=== PATIENT | male | born 1950 | race Caucasian/White ===

== ENCOUNTER 2021-12-05 15:34 | Emergency (ER) | payer BC, SELFPAY ==
[2021-12-05 15:36] VITALS: BP 173/113; PULSE 96; RESP 16; TEMP 36.6; O2SAT 96; BMI 30.7
--- NOTE | 2021-12-05 17:01 | CT_ITS ---
STUDY: CT ABDOMEN AND PELVIS WITH CONTRAST REASON FOR EXAM: Male, 71 years old. pain, weight loss RADIATION DOSAGE (If Supplied By Facility): CTDIvol = ( 15.12 ) mGy, DLP = ( 912.83 ) mGycm TECHNIQUE: Transaxial images were obtained from the dome of the diaphragm to the symphysis pubis without oral contrast. IV 100mL Isovue-370 was administered. Sagittal and coronal images were reconstructed. Individualized dose optimization techniques were used for this CT. COMPARISON: None. FINDINGS: Some left lower lobe discoid atelectasis. The visualized portions of the heart are within normal limits. Normal liver. Normal gallbladder and extrahepatic biliary system. Normal spleen. There is diffuse atrophy of the pancreas. Normal bilateral adrenal glands. Normal right kidney. Normal left kidney. Normal visualized stomach. Asymmetric wall thickening and stranding of the surrounding fat of the medial wall of the second portion the duodenum worrisome for duodenitis or mass. Correlation with endoscopy would be useful. Normal colon. There is non-visualization of the appendix. There is diffuse atherosclerotic calcification of the abdominal aorta, without a demonstrated aneurysm. Normal inferior vena cava. Normal retroperitoneum. Normal urinary bladder. Normal abdominal wall. Mild dextroscoliosis of the lumbar spine with degenerative disc disease. CT/Abdomen/Pelvis W IV Cont ONLY IMPRESSION: Asymmetric wall thickening of the second portion the duodenum worrisome for duodenitis or mass. Correlation with endoscopy is recommended. Electronically Signed: Bill Pierson MD at 18:11 EDT ,
--- NOTE | 2021-12-05 17:01 | EKG12_ITS ---
Test Reason : Blood Pressure : / mmHG Vent. Rate : 091 BPM Atrial Rate : 091 BPM P-R Int : 200 ms QRS Dur : 102 ms QT Int : 392 ms P-R-T Axes : 038 002 068 degrees QTc Int : 482 ms Normal sinus rhythm Inferior infarct , age undetermined Abnormal ECG Confirmed by MINERVA ROSA, JERE ([id number]), supervising editor trailer GLENN SIDDIQUI ([id number]) on 12/07/2021 11:17:06 AM Referred By: RADHA Confirmed By:JERE PALMA MD
--- NOTE | 2021-12-05 17:02 | EDS_ITS ---
HPI HPI - GI History of Present Illness Chief Complaint: Abd Pain Informant: patient and spouse/S.O. Narrative Narrative: Patient presents with nausea, abdominal complaints, weight loss. This started about 2 to 2-1/2 months ago. He lost 30 pounds of weight in this time. He has been seeing his private physician. He has an appointment with a hand sander on Tuesday. He had a CAT scan about 2 and half weeks ago. I do not have the results of this. There may have been a question of an ileus seen per patient. Patient states he gets a lot of saliva and mucus that drains into his stomach. He will sometimes vomit but that is usually just mucus. He has never vomited blood. He states he really does not have abdominal pain but he just has intense nausea feelings. He is not having diarrhea. He does not have black or bloody stools at any time. Patient has a history of pancytopenia per some papers he brought in but he was not familiar with this. I do not know what his blood counts run as a we have no old to compare to I am trying to have his bring up my chart to get this data as it will be very important. I do not have results of his CAT scan done recently or any of the other work-up either. Patient also has a history of lupus heart disease and significant back pain. Nothing is making his symptoms better or worse. Patient came in today because he just has not eaten for 3 days. He is gotten worse over the last 2 weeks. When I ask his if he looks pale she thinks he looks more pale than normal. [facility] Medical History Carcinoma of vocal cord Hypertension Lupus Home Medications atorvastatin 40 mg tablet 80 mg PO QHS 12/05/21 [History Last Taken Unknown] cholecalciferol (vitamin D3) 50 mcg (2,000 unit) capsule (D3-2000) 50 mcg PO DAILY 12/05/21 [History Last Taken Unknown] gabapentin 300 mg capsule 600 mg PO 1700 12/05/21 [History Last Taken Unknown] gabapentin 300 mg capsule 900 mg PO QHS 12/05/21 [History Last Taken Unknown] hydrocodone 10 mg-acetaminophen 325 mg tablet 1 tab PO Q6H PRN PRN Pain 12/05/21 [History Last Taken Unknown] hydroxychloroquine 200 mg tablet 200 mg PO BID 12/05/21 [History Last Taken Unknown] ibuprofen 400 mg tablet 800 mg PO TID 12/05/21 [History Last Taken Unknown] ipratropium bromide 42 mcg (0.06 %) nasal spray 2 spray intranasal BID 12/05/21 [History Last Taken Unknown] magnesium oxide 400 mg (241.3 mg magnesium) tablet 400 mg PO DAILY 12/05/21 [History Last Taken Unknown] montelukast 10 mg tablet 10 mg PO QHS 12/05/21 [History Last Taken Unknown] omeprazole 40 mg capsule,delayed release 40 mg PO DAILY 12/05/21 [History Last Taken Unknown] ondansetron 4 mg disintegrating tablet 4 mg PO Q6H PRN Nausea 12/05/21 [History Last Taken Unknown] ondansetron 4 mg disintegrating tablet 4 mg PO Q8H PRN nausea and vomiting #10 tabs 12/05/21 [Rx Last Taken Unknown] tamsulosin 0.4 mg capsule 0.4 mg PO DAILY 12/05/21 [History Last Taken Unknown] Allergy/AdvReac Type Severity Reaction Status Date / Time No Known Allergies Allergy Verified 12/05/21 15:53 Social History Smoking Status: Never smoker ROS ROS ED Constitutional Constitutional ED: Denies chills, fever(s) or subjective ENT ENT ED: Denies sore throat Cardiovascular Cardiovascular: Denies chest pain, palpitations or racing heartbeat Respiratory/Chest Respiratory/Chest: Denies cough or dyspnea Gastrointestinal Gastrointestinal: Reports nausea and vomiting; Denies abdominal pain, constipation, diarrhea or melena Genitourinary Genitourinary ED: Denies hematuria Musculoskeletal Musculoskeletal: Denies myalgias Integumentary Denies rash Neurologic Neurologic: Reports other Details: Generalized weakness only ; Denies headache(s) Endocrine Endocrinology: Denies polydipsia or polyuria Hematologic/Lymphatic Hematologic/Lymphatic: Denies easy bleeding or easy bruising Allergic/Immunologic Allergic/Immunologic ED: Denies urticaria EXAM Physical Exam Const Vital Signs: 12/05/21 15:36 12/05/21 17:35 12/05/21 19:43 Temperature 97.8 F Temperature Source Temporal Pulse Rate 96 90 94 Respiratory Rate 16 16 16 Blood Pressure 173/113 H 167/95 H 167/95 H Blood Pressure Mean 133 119 119 Pulse Ox 96 98 92 Oxygen Delivery Method Room Air Room Air Positive well nourished and well developed Constitutional Narrative: Patient looks markedly pale on exam General Appearance ED: well developed HEENT Reports moist mucous membranes Eyes General Eye ED: Yes pale conjunctiva; Negative for scleral icterus Neck no lymphadenopathy Resp normal respiratory effort and clear to auscultation bilaterally Auscultation: Negative for rales, rhonchi or wheezes Cardio regular rate and regular rhythm GI non-tender, non-distended and no masses GI Narrative: Bowel sounds may be slightly hypoactive. They are not markedly abnormal though. Extremity Extremity Narrative: No tenderness. He does have pallor. Neuro Sensorium / Orientation: alert Psych mental status grossly normal Skin no wounds MDM MDM MDM Narrative Medical decision making narrative: Patient CBC is surprisingly quite normal. This surprised me with the pallor that he does have. I thought his hemoglobin would be somewhat low. Coagulation studies are normal. Electrolytes are overall unremarkable. There is minimal decrease of sodium. No sign of dehydration. BUN and creatinine are normal. Glucose is normal. Liver function tests are overall normal. Lipase is negative CT showed some asymmetric wall thickening in the duodenum that was worrisome for either duodenitis or mass. His last CT scan showed mild ileus but did not mention this mass. I discussed options with the patient and his . He initially stated he really was not able to eat for a few days. But then I find out he is able to eat just not a lot of thicker solid foods. He is able to drink fluids well. He can eat fruit and ice cream and soft items. He has an appointment with Dr. Boyce on Tuesday. He would prefer to go home and see Austen in the office on Tuesday. He did get benefit from Zofran so we will write for this. We discussed returning with fevers, pain, inability to swallow or other concerns Lab Data Labs: Laboratory Results - last 24 hr 12/05/21 12/05/21 12/05/21 17:13 17:13 17:13 WBC 4.8 RBC 4.50 L Hgb 14.4 Hct 41.5 MCV 92.2 MCH 32.0 MCHC 34.7 RDW Std Deviation 40.8 RDW Coeff of Philip 12.0 Plt Count 121 L MPV 11.9 Immature Gran % (Auto) 0.200 Neut % (Auto) 87.5 H Lymph % (Auto) 4.4 L Grand % (Auto) 7.5 Eos % (Auto) 0.4 Baso % (Auto) 0.0 Absolute Neuts (auto) 4.2 Absolute Lymphs (auto) 0.21 L Nucleated RBC % 0 Differential Comment SEE COMMENT Platelet Estimate SLT DEC RBC Morphology N CHROM Anisocytosis RARE Macrocytosis RARE PT 14.0 INR 1.1 Sodium 131 L Potassium 3.9 Chloride 94 L Carbon Dioxide 29.0 Anion Gap 8 BUN 10 Creatinine 0.61 L Estim Creat Clear Calc 61.14 Est GFR (MDRD) Af Amer 166 Est GFR (MDRD) Non-Af 137 BUN/Creatinine Ratio 16.3 Glucose 107 H Calcium 9.1 Total Bilirubin 0.90 AST 28 ALT 19 Alkaline Phosphatase 85 Troponin I High Sens 36 Total Protein 6.3 L Albumin 2.7 L Globulin 3.6 Albumin/Globulin Ratio 0.8 L Lipase 108 Radiography Diagnostic Testing: Clinical Impression(s) from Imaging Studies Abdomen/Pelvis CT 12/05/21 17:01 IMPRESSION: Asymmetric wall thickening of the second portion the duodenum worrisome for duodenitis or mass. Correlation with endoscopy is recommended. Electronically Signed: Bill Pierson MD at 18:11 EDT , Discharge Plan Triage Chief Complaint: Abd Pain ED Provider: Shun Baxter Dx/Rx/DC Orders Clinical Impression: Duodenal mass, Abnormal weight loss Instructions: Anatomy of the Digestive System Prescriptions: New ondansetron 4 mg tablet,disintegrating 4 mg PO Q8H PRN (Reason: nausea and vomiting) Qty: 10 0RF No Action atorvastatin 40 mg tablet 80 mg PO QHS Label Comments: Take 2 tablets by mouth daily at bedtime. For cholesterol. May take split tab in half for swallowing issues. hydrocodone-acetaminophen 10-325 mg tablet 1 tab PO Q6H PRN PRN (Reason: Pain) omeprazole 40 mg capsule,delayed release(DR/EC) 40 mg PO DAILY magnesium oxide 400 mg (241.3 mg magnesium) tablet 400 mg PO DAILY Label Comments: Take 1 tablet by mouth once daily. tamsulosin 0.4 mg capsule 0.4 mg PO DAILY Label Comments: TAKE 1 CAPSULE BY MOUTH TWICE DAILY ibuprofen 400 mg tablet 800 mg PO TID Label Comments: Take 2 tablets by mouth three times daily. gabapentin 300 mg capsule 600 mg PO 1700 Label Comments: TAKE 2 CAPSULES BY MOUTH in the afternoon, TAKE 3 CAPSULES BY MOUTH AT BEDTIME DAILY gabapentin 300 mg capsule 900 mg PO QHS Label Comments: TAKE 2 CAPSULES BY MOUTH in the afternoon, TAKE 3 CAPSULES BY MOUTH AT BEDTIME DAILY montelukast 10 mg tablet 10 mg PO QHS Label Comments: Take 1 tablet by mouth daily at bedtime. hydroxychloroquine 200 mg tablet 200 mg PO BID Label Comments: Take 1 tablet by mouth twice daily. ipratropium bromide 42 mcg (0.06 %) spray,non-aerosol 2 spray INTRANASAL BID ondansetron 4 mg tablet,disintegrating 4 mg PO Q6H PRN (Reason: Nausea) Label Comments: TAKE 1 TABLET BY MOUTH EVERY 6 HOURS NEEDED FOR NAUSEA AND VOMITING cholecalciferol (vitamin D3) [D3-2000] 50 mcg (2,000 unit) capsule 50 mcg PO DAILY Label Comments: Take 1 capsule by mouth once daily. Primary Care Provider: Jaya Wick Referrals: Dennis Boyce MD [Med Staff - Active Staff] - Keep Jalen appointment Jaya Wick PA [Primary Care Provider] - Disposition Disposition: Home, Self Care
[2021-12-05] MEDS: Ondansetron 4 MG/2 ML Vial IV (17:12)
[2021-12-05 17:23] LABS: Absolute Lymphocyte Count 0.21 X10^3/uL (0.83-4.51); Absolute Neutrophil Count 4.2 X10^3/uL (2.0-7.7); Eosinophil# 0.02 X10^3/uL; Eosinophils% 0.4 % (0-5); Hematocrit 41.5 % (40-54); Hemoglobin 14.4 g/dL (13.0-16.5); Lymphocyte # 0.21 X10^3/ul (0.83-4.51); Lymphocyte % 4.4 % (19-41); Mean Corp Hgb Conc 34.7 g/dL (32-36); Mean Corpuscular Volume 92.2 fL (80-94); Mean Platelet Vol. 11.9 fl (6.2-12.0); Monocyte# 0.36 X10^3/uL; Monocyte% 7.5 % (0-10); NRBC Flagged by Analyzer 0 % (0-5); Neutrophil # 4.22 X10^3/uL (2.7-7.7); Neutrophil % 87.5 % (47-70); POSITIVE DIFFERENTIAL YES; Platelet Count 121 K/mm3 (150-450); RBC Distribution Width SD 40.8 fl (35.1-43.9); White Blood Count 4.8 K/mm3 (4.4-11.0)
[2021-12-05 17:35] VITALS: BP 167/95; PULSE 90; RESP 16; O2SAT 98
[2021-12-05 17:37] LABS: International Normalized Ratio 1.1
[2021-12-05 17:40] LABS: ALB/GLOB Ratio 0.8 RATIO (0.9-2.4); AST(SGOT) 28 U/L (15-37); Alanine Aminotransfer ALT/SGPT 19 U/L (16-61); Albumin, Serum 2.7 g/dL (3.2-5.0); Alkaline Phosphatase 85 U/L (45-117); Anion Gap 8 (5-15); BUN 10 mg/dL (7-18); BUN/Creat Ratio 16.3 RATIO (10-20); Calcium,Total 9.1 mg/dL (8.5-10.1); Chloride 94 mmol/L (98-107); Creatinine, Serum 0.61 mg/dL (0.70-1.30); EST Glomerular Filtration Rate 137 mL/min (>60); Est Glom Filt Rate - Afr Amer 166 mL/min (>60); Estimated Creatinine Clearance 61.14 ml/min; Globulin 3.6 g/dL (2.2-4.2); Glucose 107 mg/dL (74-106); Lipase 108 U/L (73-393); Potassium 3.9 mmol/L (3.5-5.1); Protein, Total 6.3 g/dL (6.4-8.2); Sodium Level 131 mmol/L (136-145); Troponin-I HS 36 pg/mL (3.0-78.0)
[2021-12-05 18:03] LABS: Anisocytosis RARE; Macrocytosis RARE; Platelet Estimate SLT DEC (ADEQ); Red Cell Morphology N CHROM NORMAL (NORM C&C)
[2021-12-05 19:43] VITALS: BP 167/95; PULSE 94; RESP 16; O2SAT 92
== END 2021-12-05 20:11 | disposition home or self-care (01) ==
PROVIDERS: Emergency Provider Emergency Medicine; PCP Physician Assistant; Visit Provider Emergency Medicine
DX: K31.9 Disease of stomach and duodenum, unspecified (principal); R63.4 Abnormal weight loss; Z79.899 Other long term (current) drug therapy
CPT/HCPCS: 74177; 80053; 83690; 84484; 85025; 85610; 93005; 96374; 99283; Q9967; A4216; J2405